=== PATIENT | male | born 1950 | race African-American/Black ===

== ENCOUNTER 2020-02-22 00:29 | Day surgery (SDC) | payer OTHER, SELFPAY ==
[2020-02-20 08:12] VITALS: BMI 32.5
[2020-02-22 07:46] VITALS: BMI 34.0
[2020-02-22 07:52] VITALS: BP 145/73; PULSE 80; RESP 16; TEMP 36.9; O2SAT 99
[2020-02-22] MEDS: LACTATED RINGERS 1,000 ML 150 ML IV CONT (08:17)
--- NOTE | 2020-02-22 08:55 | P.HP_ITS ---
History of Present Illness History of Present Illness Consent: Risks, benefits, and alternatives have been discussed and questions answered. Patient agrees to proceed with procedure. Chief complaint: Pers Hx of Ccolon Polyps Narrative: Ricky Rees Jr. is a 70 year old male with a history of colon polyps [facility] Social History Social History Gender identity (if verbalized by the patient): Male Meds Home Medications and Allergies Home Medications Medication Instructions Recorded Confirmed Type diltiazem HCl [Cardizem CD] 240 mg PO DAILY 02/20/20 02/22/20 History finasteride [Proscar] 5 mg DAILY 02/20/20 02/22/20 History lisinopril-hydrochlorothiazide 1 tablet PO DAILY 02/20/20 02/22/20 History [Zestoretic] Allergies Allergy/AdvReac Type Severity Reaction Status Date / Time No Known Allergies Allergy Unverified 02/22/20 07:44 Vital Signs Vital Signs - 24 hr 02/22/20 07:52 Temperature 36.9 C Pulse Rate 80 Respiratory Rate 16 Blood Pressure 145/73 H Pulse Oximetry 99 Exam Resp: Auscultation: clear to auscultation bilaterally Cardio: Rate: regular rate Rhythm: regular rhythm GI: GI Palp: Yes Soft to palpation and No Tenderness to palpation present (GI) Assessment and Plan Assessment and plan (1) Personal history of colonic polyps: Code(s): Z86.010 - Personal history of colonic polyps Status: Acute Assessment and Plan: Colonoscopy with possible biopsy or polypectomy or cautery or injection of substances.
--- NOTE | 2020-02-22 09:19 | P.PNAN_ITS ---
Anes - Initial Pre Proc Eval Procedure: Operation Date: 02/22/20 09:30 Proposed Procedures p Screening Colonoscopy - Clyde Ricketts MD Date/Time: 02/22/20 09:19 Surgeon: Clyde Ricketts MD Pre Op Diagnosis: Pers Hx of Ccolon Polyps Patient Data Age: 70 Gender: M Height: 6 ft Weight: 113.8 kg Last Vital Signs Temp 36.9 C 02/22/20 07:52 Pulse 80 02/22/20 07:52 Resp 16 02/22/20 07:52 BP 145/73 H 02/22/20 07:52 Pulse Ox 99 02/22/20 07:52 Allergies Allergy/AdvReac Type Severity Reaction Status Date / Time No Known Allergies Allergy Unverified 02/22/20 07:44 Home Medications Medication Instructions Recorded Confirmed Type diltiazem HCl [Cardizem CD] 240 mg PO DAILY 02/20/20 02/22/20 History finasteride [Proscar] 5 mg DAILY 02/20/20 02/22/20 History lisinopril-hydrochlorothiazide 1 tablet PO DAILY 02/20/20 02/22/20 History [Zestoretic] Patient hx anesthesia problems: none Family hx anesthesia problems: none [facility] Past Medical History Medical History (Updated 02/22/20 @ 09:19 by Linus Charles MD) HTN (hypertension) Obesity Social History Social History Gender identity (if verbalized by the patient): Male Anes - Eval Final PreProcedure Day of Procedure 02/22/20 09:19 Patient weight: obese Heart: regular rate and rhythm Lungs: clear to auscultation Airway: Mallampati scale class II Neurological: alert and oriented Last oral intake: >/= 8 hours ASA classification: II Emergent: no Anesthetic plan: proceed Anesthesia type and monitoring: general GIVS and standard monitoring Informed Consent: The patient's anesthetic plan and its attendant risks and benefits were discussed with the patient/family/POA. Questions were solicited and answers provided to the satisfaction of the patient/family/POA.
[2020-02-22 09:45] VITALS: BP 108/49; PULSE 69; RESP 15; O2SAT 98
[2020-02-22 09:55] VITALS: BP 115/62; PULSE 66; RESP 15; O2SAT 99
[2020-02-22 10:05] VITALS: BP 144/74; PULSE 64; RESP 12; O2SAT 99
== END 2020-02-22 10:30 | disposition home or self-care (01) ==
PROVIDERS: PCP Internal Medicine; Visit Provider Internal Medicine Gastroenterology
PROC: 0DJD8ZZ Inspection of Lower Intestinal Tract, Via Natural or Artificial Opening Endoscopic (ICD-10-PCS; CPT 45378; principal; 2020-02-22 09:30)
DX: Z12.11 Encounter for screening for malignant neoplasm of colon (principal); K57.30 Diverticulosis of large intestine without perforation or abscess without bleeding; Z86.010 Personal history of colon polyps; I10 Essential (primary) hypertension; E66.9 Obesity, unspecified; Z68.34 Body mass index [BMI] 34.0-34.9, adult
CPT/HCPCS: G0105; J2704; J7120